=== PATIENT | male | born 1940 | race American Indian/Alaskan Native ===

== ENCOUNTER 2018-05-30 06:57 | Day surgery (SDC) | payer MEDICARE ==
[2018-05-30] MEDS ORDERED: NACL 0.9% 1000 ML 1,000 ML IV SCH (07:00)
[2018-05-30] MEDS ORDERED: VERSED ONE (09:36)
[2018-05-30] MEDS ORDERED: DIPRIVAN 10 MG/ML IV ONE (09:36)
[2018-05-30] MEDS ORDERED: WATER FOR IRRIG STERILE IR ONE (09:56)
--- NOTE | 2018-05-30 10:00 | Short Stay Summary ---
Short Stay Documentation Date of service: 05/30/18 Narrative H&P: The patient presents today for EGD and colonoscopy to evaluate chronic blood loss anemia. Colonoscopy was cancelled because he did not withhold Xarelto as instructed for 72 hours. - History Past Medical History: atrial fib, anemia, COPD, hypertension, other (Gout, ifon deficiency anemia) Past Surgical History: Other (Defibrillator) Social history: , lives with family, no smoking, no alcohol abuse - Allergies and Medications Current Medications: Allergies No Known Allergies Allergy (Verified 05/29/18 12:32) Home Medications Medication Instructions Recorded Confirmed Last Taken Type Carvedilol 6.25 mg PO BID 05/30/18 05/30/18 05/29/18 History Digoxin 125 mg PO DAILY 05/30/18 05/30/18 05/29/18 History Furosemide 80 mg PO DAILY 05/30/18 05/30/18 05/29/18 History Losartan 25 mg PO DAILY 05/30/18 05/30/18 05/30/18 History Xarelto 20 mg PO DAILY 05/30/18 05/30/18 05/29/18 History oxyCODONE 325 mg PO PRN PRN 05/30/18 05/30/18 Unknown History Active Medications Sodium Chloride (Nacl 0.9% 1000 Ml) 1,000 mls @ 50 mls/hr IV DIRECT JADON Last Admin: 05/30/18 08:45 Dose: 50 mls/hr - Physical exam General appearance: no acute distress, well-nourished Integumentary: no rash, no growths, no abnormal pigmentation HEENT: Atraumatic, PERRLA, EOMI, Mucous membr. moist/pink Lungs: Clear to auscultation, Normal air movement Breasts: deferred Heart: Normal S1, Normal S2, No murmurs Gastrointestinal: normoactive bowel sounds, no tenderness, no distended, no masses, no guarding, no organomegaly Male Genitourinary: deferred Rectal Exam: deferred Extremities: no ischemia, pulses intact, pulses symmetrical, No edema, normal color Neurological: Normal gait, Normal speech, Strength at 5/5 X4 ext, Normal tone, Sensation intact, Cranial nerves 3-12 NL - Brief post op/procedure progress note Date of procedure: 05/30/18 Findings: see dictated report Estimated blood loss: none Pathology: none Condition: stable - Disposition Condition at discharge: Good Disposition: DC-01 TO HOME OR SELFCARE - Discharge Diagnoses (1) Iron deficiency anemia due to chronic blood loss Status: Acute Short Stay Discharge Plan Activity: other (no driving for 24 hours. Restart Xarelto in 72 hours. Call office to schedule colonoscopy.) Weight Bearing Status: Weight Bear as Tolerated Diet: regular Follow up with: RAMONA GILLIAM MD [Primary Care Provider] - 7 Days
--- NOTE | 2018-05-30 10:07 | Operative Report ---
Operative Report Operative Report: Date of procedure: 05-30-18 Preprocedure diagnosis: Iron deficiency anemia secondary to chronic blood loss Procedure diagnosis: AVM and duodenal bulb Procedure: Esophagogastroduodenoscopy with ablation of the AVM by argon plasma coagulation. Endoscopist: Dr. Tom Metcalf Estimated blood loss: 0 Complications: None Anesthesia: Propofol per anesthesia staff. After careful discussion of the nature and purpose of the procedure as well as details the technique, risks, benefits, and alternatives consent was obtained. He was placed in the left lateral decubitus position and medication was given per anesthesia as above. The tip of the [employer] on EQ 570 video upper scope was passed per orum under direct vision into the esophagus and advanced into the stomach and duodenum. The descending duodenum was normal. 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 In the duodenal bulb there was a 2 mm arteriovenous malformation present which was not bleeding at the time. The pylorus was symmetrical and normal. The scope was withdrawn into the stomach and the stomach generally insufflated with air. The antrum was normal. The scope was retroflexed and partially withdrawn. The cardia, fundus, and body of the stomach were normal. The stomach is easily distensible. The scope was then advanced again into the duodenal bulb. The AVM was ablated with the argon plasma pan washer. No bleeding was incurred upon ablation. The scope was then withdrawn in the forward view. The esophagogastric junction was at 40 cm. The Z line was sharp and esophageal body normal throughout. 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 Normal stomach and esophagus. Plan: The patient will call the office to reschedule colonoscopy with 3 days off of Xarelto. Signed: Tom Metcalf M.D.
--- NOTE | 2018-05-30 10:07 | Anesthesia Consultation ---
Anesthesia Consult and Med Hx Date of service: 05/30/18 - Airway Anesthetic Teeth Evaluation: Dentures (upper) ROM Head & Neck: Adequate Mental/Hyoid Distance: Adequate Mallampati Class: Class II Intubation Access Assessment: Probably Good - Pulmonary Exam CTA: Yes - Cardiac Exam Anesthetic Concerns: irregular - Pre-Operative Health Status ASA Pre-Surgery Classification: ASA3 Proposed Anesthetic Plan: MAC - Pulmonary Hx Smoking: Yes (former) COPD: Yes Home Oxygen Therapy: Yes (2l prn ) Hx Sleep Apnea: Yes (cpap) - Cardiovascular System Hx Hypertension: Yes (CHF ) Hx Cardia Arrhythmia: Yes (afib) Hx Internal Defibrillator: Yes
--- NOTE | 2018-05-30 10:08 | Anesthesia Day of Surgery ---
Anesthesia Day of Surgery - Day of Surgery Patient Examined: Yes Patient H&P Reviewed: Yes Patient is NPO: Yes Beta Blockers: Yes
[2018-05-30 15:23] VITALS: BP 119/83
== END 2018-05-30 06:58 | disposition home or self-care (01) ==
LOC: GIO 06:57
PROVIDERS: ATTEND Internal Medicine Gastroenterology
DX: K55.20 Angiodysplasia of colon without hemorrhage (principal); D50.0 Iron deficiency anemia secondary to blood loss (chronic); I11.0 Hypertensive heart disease with heart failure; I50.9 Heart failure, unspecified; I48.91 Unspecified atrial fibrillation; G62.9 Polyneuropathy, unspecified; J44.9 Chronic obstructive pulmonary disease, unspecified; G47.33 Obstructive sleep apnea (adult) (pediatric); M10.9 Gout, unspecified; Z79.01 Long term (current) use of anticoagulants; Z79.899 Other long term (current) drug therapy; Z99.81 Dependence on supplemental oxygen; Z99.89 Dependence on other enabling machines and devices; Z95.810 Presence of automatic (implantable) cardiac defibrillator; Z87.891 Personal history of nicotine dependence; Z98.890 Other specified postprocedural states
CPT/HCPCS: 43255; J2704; J7030; J2250